=== PATIENT | male | born 1965 | race Caucasian/White ===

== ENCOUNTER 2022-11-20 06:22 | Day surgery (SDC) | payer SELFPAY ==
[2022-11-20] MEDS ORDERED: Dextrose 5%-Lactated Ringers 1,000 ML IV SCH (07:30)
[2022-11-20] MEDS ORDERED: Propofol 200 MG/20 ML SDV ONE (08:27)
[2022-11-20] MEDS ORDERED: Midazolam 1 MG/ML 2 ML SDV ONE (08:27)
[2022-11-20] MEDS ORDERED: fentaNYL 50 MCG/ML SDV ONE (08:27)
[2022-11-20] MEDS ORDERED: Dexamethasone 4 MG/ML SDV ONE (09:49)
== END 2022-11-20 11:05 | disposition home or self-care (01) ==
LOC: JP.SDS 06:22
PROVIDERS: ATTEND Surgery
DX: K22.2 Esophageal obstruction (principal); K21.9 Gastro-esophageal reflux disease without esophagitis
CPT/HCPCS: 43248; J1100; J2250; J2704; J3010; J7121